=== PATIENT | male | born 1940 | race Caucasian/White ===

== ENCOUNTER 2020-07-11 07:00 | Day surgery (SDC) | payer MEDICARE, MEDICAID ==
--- NOTE | 2020-07-10 12:41 | Diagnostic Imaging Report ---
Indication: Shortness of breath Technique: 2 views of the chest Comparison: None Findings: Left hemidiaphragm is elevated. Lungs and pleural spaces are clear. Normal heart size Impression: No acute process
[~2020-07-11] VITALS: Ht 167.6 cm; Wt 81.6 kg
[2020-07-11] VITALS (12 sets, daily range): BP systolic 106–153; BP diastolic 58–89
[~2020-07-11 07:00] MED LIST: ceFAZolin sod 1 GM in NS 55 ML IVPB ONE
[2020-07-11] MEDS ORDERED: NEXIUM20 M1 ORAL (08:07)
[2020-07-11] MEDS ORDERED: BYSTOLIC2.5 MG ORAL (08:08)
[2020-07-11] MEDS ORDERED: breo INH (08:09)
[2020-07-11] MEDS ORDERED: BACTRIM DS TAB1 EAC1 ORAL (08:10)
[2020-07-11] MEDS ORDERED: LEVAQUIN500 MG ORAL (08:10)
[2020-07-11] MEDS ORDERED: Rocuronium Bromide 50mg/5ml Inj IV ONE (09:41)
[2020-07-11] MEDS ORDERED: Iothalamate Meglumine 60% 30ML INJ ONE (09:44)
--- NOTE | 2020-07-11 09:45 | Pre-Procedure Note/Attestation ---
Pre-Procedure Note/Attestation Complete Prior to Procedure Planned Procedure: not applicable Procedure Narrative: TURBT RPG Indications for Procedure Pre-Operative Diagnosis: bladder tumor Attestation I attest that I discussed the nature of the procedure; its benefits; risks and complications; and alternatives (and the risks and benefits of such alternatives ), prior to the procedure, with the patient (or the patient's legal electronics parts sales representative). I attest that, if there was a reasonable possibility of needing a blood transfusion, the patient (or the patient's legal electronics parts sales representative) was given the [facility] standardized written summary, pursuant to the Ananda Noe Blood Safety Act ([place] Health and Safety Code # 1645, as amended). I attest that I re-evaluated the patient just prior to the surgery and that there has been no change in the patient's H&P, except as documented below: Jamal Cruz MD Jul 11, 2020 09:45
[2020-07-11] MEDS ORDERED: Sterile Water Irrig 1000ml IRRIG ONE (09:50)
[2020-07-11] MEDS ORDERED: NS Irrig 2000ml IRRIG ONE ×2 (09:50→10:31)
[2020-07-11] MEDS ORDERED: NS Irrig 1000ml ONE (09:50)
[2020-07-11] MEDS ORDERED: LR 1000ml ONE (09:50)
[2020-07-11] MEDS ORDERED: fentaNYL 100 mcg/2 mL IV ONE (09:53)
[2020-07-11] MEDS ORDERED: Midazolam 2mg/2ml Inj ONE (09:54)
[2020-07-11] MEDS ORDERED: HYDROmorphone 1mg/ml Carpuject SUBQ PRN (10:00)
[2020-07-11] MEDS ORDERED: D5 1/2NS 1,000 ML IV SCH (10:00)
[2020-07-11] MEDS ORDERED: HYDROcodone/Acetamin 5/325 tab ORAL PRN (10:00)
[2020-07-11] MEDS ORDERED: Tylenol #3 tab (300mg/30mg) ORAL PRN (10:00)
--- NOTE | 2020-07-11 10:01 | Brief Operative Note ---
Immediate Post Operative Note Operative Note Pre-op Diagnosis: bladder tumor Procedure: TURBT RPG Post-op Diagnosis: Bladder tumor Post-op Diagnosis: same as pre-op Surgeon: Jamal Cruz Anesthesia: general Specimen: yes Complications: none Condition: stable Fluids: 500 Estimated Blood Loss: minimal Implant(s) used?: No Jamal Cruz MD Jul 11, 2020 10:01
[2020-07-11] MEDS ORDERED: Metoclopramide 10mg/2ml Inj ONE (10:48)
[2020-07-11] MEDS ORDERED: Lidocaine 1% MPF 10mg/ml 5ml ONE (10:48)
[2020-07-11] MEDS ORDERED: Glycopyrrolate 0.2mg/ml 1ml Vial ONE ×2 (10:53→10:59)
[2020-07-11] MEDS ORDERED: Neostigmine 1mg/ml 10ml Inj ONE (10:53)
--- NOTE | 2020-07-11 10:56 | Anethesia Preoperative Eval ---
Anesthesia Pre-op PMH/ROS General Date of Evaluation: Jul 11, 2020 Time of Evaluation: 09:50 Anesthesiologist: chato ASA Score: ASA 3 Mallampati Score Class I : Soft palate, uvula, fauces, pillars visible Class II: Soft palate, uvula, fauces visible Class III: Soft palate, base of uvula visible Class IV: Only hard plate visible Mallampati Classification: Class III Anesthesia History: none Family History: no anesthesia problems Allergies: Coded Allergies: No Known Allergies (Unverified , 07/10/20) Medications: see eMAR Patient NPO?: Yes NPO Date: Jul 11, 2020 NPO Time: 00:01 Past Medical History Cardiovascular: Reports: HTN Pulmonary: Denies: asthma, COPD, NAKITA, other Gastrointestinal/Genitourinary: Reports: GERD, other - bladder tumr Neurologic/Psychiatric: Denies: dementia, CVA, depression/anxiety, TIA, other Endocrine: Denies: DM, hypothyroidism, steroids, other HEENT: Denies: cataract (L), cataract (R), glaucoma, OMAHA (L), OMAHA (R), other Hematology/Immune: Denies: anemia, DVT, bleeding disorder, other Other: obesity PSxH Narrative: turp Anesthesia Pre-op Phys. Exam Physician Exam Last Vital Signs Date Time Temp Pulse Resp B/P (MAP) Pulse Ox O2 Delivery O2 Flow Rate FiO2 07/11/20 08:01 Room Air 07/11/20 07:39 97.4 71 20 153/89 98 Constitutional: NAD Neurologic: CN 2-12 intact Cardiovascular: RRR Respiratory: CTA Gastrointestinal: S/NT/ND Airway Exam Mallampati Classification 3 Mallampati Score: Class III MO: limited ROM: limited Teeth: missing Dentures: no upper, no lower Anesthesia Pre-op A/P Studies Pre-op Studies: EKG - SR Risk Assessment & Plan Plan: general Pre-Antibiotics Drug: ancef Given Within 1 Hr of Incision: Yes Time Given: 10:05 Kajal Jacques CRNA Jul 11, 2020 10:56
[2020-07-11] MEDS ORDERED: Hydromorphone 0.5mg/0.5ml inj IVP PRN (11:00)
[2020-07-11] MEDS ORDERED: fentaNYL 100 mcg/2 mL IV PRN (11:00)
--- NOTE | 2020-07-11 11:19 | Immediate Post-Op Evaluation ---
Immediate Post-Op Evalulation Immediate Post-Op Evalulation Procedure: turp Date of Evaluation: Jul 11, 2020 Time of Evaluation: 11:19 IV Fluids: 1000 Blood Pressure Systolic: 148 Blood Pressure Diastolic: 70 Pulse Rate: 67 Respiratory Rate: 14 O2 Sat by Pulse Oximetry: 99 Temperature (Fahrenheit): 98.4 Nausea: No Vomiting: No Complications none Patient Status: awake, reacts, patent Hydration Status: adequate Drug: ancef Given Within 1 Hr of Incision: Yes Time Given: 10:05 Kajal Jacques CRNA Jul 11, 2020 11:19
--- NOTE | 2020-07-11 12:10 | 48 Hour Post Anesthesia Eval ---
Post Anesthesia Evaluation Procedure: turp Date of Evaluation: Jul 11, 2020 Time of Evaluation: 12:10 Blood Pressure Systolic: 109 0: 60 Pulse Rate: 50 Respiratory Rate: 14 O2 Sat by Pulse Oximetry: 98 Airway: patent Nausea: No Vomiting: No Hydration Status: adequate Cardiopulmonary Status: STABLE Mental Status/LOC: patient returned to baseline Post-Anesthesia Complications: none Follow-up care needed: N/A Kajal Jacques CRNA Jul 11, 2020 12:10
--- NOTE | 2020-07-11 16:20 | Diagnostic Imaging Report ---
INDICATION: Pain, intraoperative TECHNIQUE: Intraoperative imaging Fluoroscopy time: 13.2 seconds Total dose: [id number] mGym2 Total number of images: 7 COMPARISON: None FINDINGS: Intraoperative images during retrograde ureteral injection demonstrate opacification of the bilateral ureters and renal collecting systems IMPRESSION: Intraoperative imaging, as described
[2020-07-12] MEDS ORDERED: NEXIUM40 MG ORAL (01:00)
[2020-07-12] MEDS ORDERED: BREO ELLIPTA 11 EACH IH (01:00)
[2020-07-12] MEDS ORDERED: ZOLPIDEM TARTRAT5 MG ORAL (01:00)
--- NOTE | 2020-07-13 00:15 | Operative Note - Dictated ---
DATE OF OPERATION: 07/11/2020 PREOPERATIVE DIAGNOSES: Bladder tumor, hematuria. POSTOPERATIVE DIAGNOSES: Bladder tumor, hematuria. OPERATION: Transurethral resection of bladder tumor with bilateral retrograde pyelogram. MULTI LINE CLAIMS ADJUSTER: Jamal Cruz MD ANESTHESIA: General. FINDINGS: Large tumor mass at the anterior portion of the bladder . INDICATION FOR SURGERY: Patient has had gross hematuria, came to the office, antibiotics. CT urogram showed infiltrating bladder mass. Cystoscopy confirmed the same. Treatment options explained to the patient in great length including all potential complications. He signed the consent. DESCRIPTION OF PROCEDURE: He was brought to the operating room, placed in the lithotomy position, prepped and draped in standard fashion. Under general anesthesia using transurethral resectoscope, the tumor was resected all the way to the muscularis and removed for pathological examination. Bilateral retrogrades were normal. A Ramos catheter was placed. Ramos was 2-way, irrigated clear urine. Patient was transferred to recovery room in a stable condition. Sponge count and instrument count was correct. Jamal Cruz M.D. DR: INA JOB#: [id number] CC:
== END 2020-07-11 13:15 | disposition home or self-care (01) ==
LOC: SUR 07:00
DX: C67.9 Malignant neoplasm of bladder, unspecified (principal); I10 Essential (primary) hypertension; K21.9 Gastro-esophageal reflux disease without esophagitis; E66.9 Obesity, unspecified; Z68.21 Body mass index [BMI] 21.0-21.9, adult
CPT/HCPCS: 52240; 71046; 74420; 76000; 93005; 94003; J0690; J1170; J2250; J2405; J2704; J2710; J2765; J3010; J7120; Q9961; U0002; 94150

== ENCOUNTER 2020-07-11 21:28 | Inpatient (IN) | payer MEDICARE, MEDICAID ==
[~2020-07-11] VITALS: Ht 162.6 cm; Wt 82.6 kg
[~2020-07-11 21:28] MED LIST changes: +BACTRIM DS TAB1 EAC1 ORAL; +BYSTOLIC2.5 MG ORAL; +LEVAQUIN500 MG ORAL; +NEXIUM20 M1 ORAL; +breo INH; -ceFAZolin sod 1 GM in NS 55 ML IVPB ONE
[2020-07-11 22:00] VITALS: BP 151/83
--- NOTE | 2020-07-11 22:05 | Emergency Room Report ---
History of Present Illness General Chief Complaint: Male Urogenital Problems Source: Patient, Friend Present Illness HPI This is an 80-year-old Ecuadorean-speaking male who presents with chief complaint of hematuria. He had a TURP procedure done today. He has a Ramos placed. He said when he got home he noticed urine was bloody. There were some strings of clots. Now is just maroon color urine. No fever chills but no trauma. No pain. Nothing made it better. Nothing made it worse. His urologist Dr. Sotelo told him to come to the hospital. 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: No Patient History Past Medical History: see triage record, old chart reviewed Past Surgical History: other Pertinent Family History: none Social History: Denies: smoking Immunizations: other Reviewed Nursing Documentation: PMH: Agreed; PSxH: Agreed Nursing Documentation-PMH Hx Cardiac Problems: Yes Hx Hypertension: Yes Hx Asthma: Yes Hx Cancer: No - BLADDER TUMOR Hx Gastrointestinal Problems: Yes Hx Neurological Problems: No Review of Systems Eye: Denies: eye pain, blurred vision ENT: Denies: ear pain, nose congestion, throat swelling Respiratory: Denies: cough, shortness of breath Cardiovascular: Denies: chest pain, palpitations Gastrointestinal: Denies: abdominal pain, diarrhea, nausea, vomiting Genitourinary: Reports: hematuria Musculoskeletal: Denies: back pain, joint pain Skin: Denies: rash Neurological: Denies: headache, numbness Endocrine: Denies: increased thirst, increased urine Hematologic/Lymphatic: Denies: easy bruising All Other Systems: negative except mentioned in HPI Physical Exam Vital Signs Date Time Temp Pulse Resp B/P (MAP) Pulse Ox O2 Delivery O2 Flow Rate FiO2 07/11/20 21:39 98.4 94 20 151/83 (105) 99 Room Air Vitals with high blood pressure Sp02 EP Interpretation: reviewed, normal General Appearance: well appearing, no apparent distress, alert Head: normocephalic, atraumatic Eyes: bilateral eye PERRL, bilateral eye EOMI ENT: hearing grossly normal, normal pharynx Neck: full range of motion, supple, no meningismus Respiratory: chest non-tender, lungs clear, normal breath sounds Cardiovascular #1: regular rate, rhythm, no murmur Gastrointestinal: normal bowel sounds, non tender, no mass, no organomegaly, no bruit, non-distended Musculoskeletal: back normal, normal range of motion, gait/station normal Psychiatric: mood/affect normal Medical Decision Making Diagnostic Impression: Primary Impression: Gross hematuria ER Course This patient presents with gross hematuria after TURP procedure. I spoke with Dr. Sotelo who wanted pt to be admitted for CBI with [address] [place]. He asked that Dr. Alvarez to admit. I spoke with Dr. Alvarez who will admit. Last Vital Signs Date Time Temp Pulse Resp B/P (MAP) Pulse Ox O2 Delivery O2 Flow Rate FiO2 07/11/20 21:39 98.4 94 20 151/83 (105) 99 Room Air Status: improved Disposition: SHORT-TERM HOSP Condition: Serious Ramin Elmore MD Jul 11, 2020 22:05
[2020-07-11 22:44] LABS: BASOPHILS % (AUTO) 0.8 % (0.0-2.0); EOSINOPHILS % (AUTO) 1.3 % (0.0-3.0); HEMATOCRIT 42.2 % (42.0-52.0); HEMOGLOBIN 14.3 G/DL (14.2-18.0); LYMPHOCYTES % (AUTO) 11.9 % (20.0-45.0); MEAN CORPUSCULAR VOLUME 89 FL (80-99); MONOCYTES % (AUTO) 7.1 % (1.0-10.0); NEUTROPHILS % (AUTO) 78.9 % (45.0-75.0); PLATELET COUNT 166 K/UL (150-450); RED BLOOD COUNT 4.76 M/UL (4.70-6.10); RED CELL DISTRIBUTION WIDTH 11.9 % (11.6-14.8); WHITE BLOOD COUNT 10.7 K/UL (4.8-10.8)
[2020-07-11 22:56] LABS: ANION GAP 10 mmol/L (5-15); BLOOD UREA NITROGEN 14 mg/dL (7-18); CALCIUM 9.2 MG/DL (8.5-10.1); CARBON DIOXIDE 24 MMOL/L (21-32); CHLORIDE 103 MMOL/L (98-107); POTASSIUM 3.9 MMOL/L (3.5-5.1); SODIUM 137 MMOL/L (136-145)
[2020-07-11 22:58] LABS: INR 1.1 (0.9-1.1)
[2020-07-11 23:01] LABS: ALANINE AMINOTRANSFERASE 18 U/L (12-78); ALBUMIN 3.8 G/DL (3.4-5.0); ALBUMIN/GLOBULIN RATIO 1.1 (1.0-2.7); ALKALINE PHOSPHATASE 69 U/L (46-116); ASPARTATE AMINO TRANSFERASE 20 U/L (15-37); BILIRUBIN,TOTAL 0.2 MG/DL (0.2-1.0)
[2020-07-11 23:03] LABS: APPEARANCE,URINE TURBID; COLOR,URINE RED
[2020-07-11 23:04] LABS: BILIRUBIN, URINE NEGATIVE (NEGATIVE); GLUCOSE, URINE (UA) NEGATIVE (NEGATIVE); KETONES,URINE NEGATIVE (NEGATIVE); LEUKOCYTE ESTERASE ,URINE TRACE (NEGATIVE); NITRITE,URINE NEGATIVE (NEGATIVE); PROTEIN,URINE 4+ (NEGATIVE); UROBILINOGEN,URINE NORMAL MG/DL (0.0-1.0)
[2020-07-11 23:50] VITALS: BP 182/79
[2020-07-12] VITALS: BP 137/88
[2020-07-12] MEDS ORDERED: Morphine Sulfate 4mg/ml Inj (IV USE ONLY) IVP PRN
[2020-07-12] MEDS ORDERED: ZOLPIDEM TARTRAT5 MG ORAL (01:00)
[2020-07-12] MEDS ORDERED: BREO ELLIPTA 11 EACH IH (01:00)
[2020-07-12] MEDS ORDERED: NEXIUM40 MG ORAL (01:00)
[2020-07-12] MEDS ORDERED: Zolpidem 5mg tab ORAL PRN (01:15)
[2020-07-12] MEDS ORDERED: Breo Ellipta 100/25mcg - 14 dose INH PRN (01:15)
[2020-07-12] MEDS ORDERED: Morphine Sulfate 2mg/ml Inj(IV/IM USE ONLY) IVP PRN ×3 (02:00→06:00)
[2020-07-12 04:00] VITALS: BP 111/65
[2020-07-12 06:58] LABS: BASOPHILS % (AUTO) 0.3 % (0.0-2.0); EOSINOPHILS % (AUTO) 1.1 % (0.0-3.0); HEMATOCRIT 39.1 % (42.0-52.0); HEMOGLOBIN 13.5 G/DL (14.2-18.0); LYMPHOCYTES % (AUTO) 12.2 % (20.0-45.0); MEAN CORPUSCULAR VOLUME 87 FL (80-99); MONOCYTES % (AUTO) 7.1 % (1.0-10.0); NEUTROPHILS % (AUTO) 79.3 % (45.0-75.0); PLATELET COUNT 144 K/UL (150-450); RED CELL DISTRIBUTION WIDTH 11.7 % (11.6-14.8); WHITE BLOOD COUNT 9.9 K/UL (4.8-10.8)
[2020-07-12 07:24] LABS: ANION GAP 10 mmol/L (5-15); BLOOD UREA NITROGEN 14 mg/dL (7-18); CALCIUM 8.8 MG/DL (8.5-10.1); CARBON DIOXIDE 24 MMOL/L (21-32); CHLORIDE 104 MMOL/L (98-107); PHOSPHORUS 3.5 MG/DL (2.5-4.9); POTASSIUM 3.6 MMOL/L (3.5-5.1); SODIUM 138 MMOL/L (136-145)
[2020-07-12 08:00] VITALS: BP 120/57
[2020-07-12] MEDS: Bystolic 2.5mg Tab ORAL SCH (08:54)
[2020-07-12 11:53] VITALS: BP 124/60
--- NOTE | 2020-07-12 13:59 | Consultation ---
History of Present Illness General Date patient seen: Jul 12, 2020 Reason for Hospitalization: Male Urogenital Problems Present Illness HPI This is an 80-year-old Singaporean-speaking male who presents with chief complaint of hematuria and pelvic discomfort. He had a TURP procedure done 07/11. He has a Ramos placed. He said when he got home he noticed urine was bloody and pelvic pain. There were some strings of clots. Now is just maroon color urine. No fever chills but no trauma. No pain. Nothing made it better. Nothing made it worse. His urologist Dr. Sotelo told him to come to the hospital. admitted for care and management. surgery called to evaluate and assist with care. patient seen, chart reviewed, america kellogg. states pain improving since admission Allergies: Coded Allergies: No Known Allergies (Unverified , 07/10/20) COVID-19 Screening Contact w/high risk pt: No Experienced COVID-19 symptoms?: No Medication History Scheduled Esomeprazole Magnesium (Nexium), 40 MG ORAL ACBREAKFAST, (Reported) Nebivolol Hcl* (Bystolic*), 5 MG ORAL DAILY, (Reported) Scheduled PRN Fluticasone/Vilanterol (Breo Ellipta 100-25 Mcg INH), 1 EACH IH EVERY 4 HOURS PRN for Shortness of Breath, (Reported) Zolpidem Tartrate* (Zolpidem Tartrate*), 5 MG ORAL BEDTIME PRN for Insomnia, ( Reported) Discontinued Medications Esomeprazole Magnesium (Nexium), 20 MG ORAL DAILY, (Reported) Discontinued Reason: Medication dose changed Levofloxacin* (Levaquin*), 500 MG ORAL DAILY, (Reported) Discontinued Reason: MD discontinued med Trimethoprim/Sulfamethoxazole 160/800* (Bactrim Ds Tablet*), 1 TAB ORAL TWICE A DAY, (Reported) Discontinued Reason: MD discontinued med [breo], 1 PUFF INH DAILY, (Reported) Discontinued Reason: Medication dose changed Patient History History Provided By: Patient, Medical Record, PMD Healthcare decision maker Resuscitation status Advanced Directive on File Past Medical/Surgical History Past Medical/Surgical History: (1) Pelvic pain (2) Gross hematuria Review of Systems Review of Symptoms General ROS: no weight loss or fever Psychological ROS: no depression or mood changes, no memory loss Ophthalmic ROS: no visual changes or eye irritation ENT ROS: no nasal congestion, hearing loss, dizziness Allergy and Immunology ROS: no allergic symptoms or urticaria Hematological and Lymphatic ROS: no swollen glands, unusual bleeding or bruising Endocrine ROS: no polyuria, polydipsia, weight changes, temperature intolerance Respiratory ROS: no cough, shortness of breath, or wheezing Cardiovascular ROS: no chest pain or dyspnea on exertion Gastrointestinal ROS: denies abdominal pain, bright red blood in stool. Musculoskeletal ROS: no myalgias or arthralgias Neurological ROS: no TIA or stroke symptoms Dermatological ROS: no new or changing skin lesions, rashes or pruritis Physical Exam Physical Exam General appearance: alert, cooperative, no distress, appears stated age Head: Normocephalic, without obvious abnormality, atraumatic Eyes: conjunctivae/corneas clear. PERRL, EOM's intact. Fundi benign Throat: Lips, mucosa, and tongue normal. Teeth and gums normal Neck: supple, symmetrical, trachea midline, no adenopathy, thyroid: not enlarged, symmetric, no tenderness/mass/nodules, no carotid bruit and no JVD Lungs: clear to auscultation bilaterally Heart: regular rate and rhythm, S1, S2 normal, no murmur, click, rub or gallop Abdomen: soft, non-tender. Bowel sounds normal. No masses, no organomegaly Extremities: extremities normal, atraumatic, no cyanosis or edema Pulses: 2+ and symmetric Skin: Skin color, texture, turgor normal. No rashes or lesions Neurologic: Grossly normal Last 24 Hour Vital Signs Date Time Temp Pulse Resp B/P (MAP) Pulse Ox O2 Delivery O2 Flow Rate FiO2 07/12/20 11:53 99.1 72 18 124/60 (81) 94 07/12/20 09:00 Room Air 07/12/20 08:00 98.3 80 20 120/57 (78) 93 07/12/20 04:00 98.1 71 111/65 (80) 07/12/20 01:11 Room Air 07/12/20 00:05 98.2 90 20 147/60 100 Room Air 07/12/20 00:00 98.4 99 20 137/88 99 Room Air 07/11/20 23:53 182/79 07/11/20 23:50 98.4 95 20 182/79 98 Room Air 07/11/20 22:00 98.4 94 20 151/83 99 Room Air 07/11/20 21:39 98.4 94 20 151/83 (105) 99 Room Air Intake and Output 07/11/20 07/12/20 19:00 07:00 Intake Total 200 ml Output Total 3150 ml Balance -2950 ml Intake Oral 200 ml Output Urine Total 3150 ml Laboratory Tests Test 07/11/20 22:00 07/11/20 22:18 07/12/20 05:35 White Blood Count 10.7 K/UL (4.8-10.8) 9.9 K/UL (4.8-10.8) Red Blood Count 4.76 M/UL (4.70-6.10) 4.50 M/UL (4.70-6.10) L Hemoglobin 14.3 G/DL (14.2-18.0) 13.5 G/DL (14.2-18.0) L Hematocrit 42.2 % (42.0-52.0) 39.1 % (42.0-52.0) L Mean Corpuscular Volume 89 FL (80-99) 87 FL (80-99) Mean Corpuscular Hemoglobin 30.0 PG (27.0-31.0) 29.9 PG (27.0-31.0) Mean Corpuscular Hemoglobin Concent 33.9 G/DL (32.0-36.0) 34.4 G/DL (32.0-36.0) Red Cell Distribution Width 11.9 % (11.6-14.8) 11.7 % (11.6-14.8) Platelet Count 166 K/UL (150-450) 144 K/UL (150-450) L Mean Platelet Volume 6.3 FL (6.5-10.1) L 6.4 FL (6.5-10.1) L Neutrophils (%) (Auto) 78.9 % (45.0-75.0) H 79.3 % (45.0-75.0) H Lymphocytes (%) (Auto) 11.9 % (20.0-45.0) L 12.2 % (20.0-45.0) L Monocytes (%) (Auto) 7.1 % (1.0-10.0) 7.1 % (1.0-10.0) Eosinophils (%) (Auto) 1.3 % (0.0-3.0) 1.1 % (0.0-3.0) Basophils (%) (Auto) 0.8 % (0.0-2.0) 0.3 % (0.0-2.0) Prothrombin Time 11.8 SEC (9.30-11.50) H Prothromb Time International Ratio 1.1 (0.9-1.1) Activated Partial Thromboplast Time 31 SEC (23-33) Sodium Level 137 MMOL/L (136-145) 138 MMOL/L (136-145) Potassium Level 3.9 MMOL/L (3.5-5.1) 3.6 MMOL/L (3.5-5.1) Chloride Level 103 MMOL/L (98-107) 104 MMOL/L (98-107) Carbon Dioxide Level 24 MMOL/L (21-32) 24 MMOL/L (21-32) Anion Gap 10 mmol/L (5-15) 10 mmol/L (5-15) Blood Urea Nitrogen 14 mg/dL (7-18) 14 mg/dL (7-18) Creatinine 1.0 MG/DL (0.55-1.30) 1.0 MG/DL (0.55-1.30) Estimat Glomerular Filtration Rate > 60 mL/min (>60) > 60 mL/min (>60) Glucose Level 117 MG/DL (74-106) H 101 MG/DL (74-106) Calcium Level 9.2 MG/DL (8.5-10.1) 8.8 MG/DL (8.5-10.1) Total Bilirubin 0.2 MG/DL (0.2-1.0) Aspartate Amino Transf (AST/SGOT) 20 U/L (15-37) Alanine Aminotransferase (ALT/SGPT) 18 U/L (12-78) Alkaline Phosphatase 69 U/L (46-116) Total Protein 7.2 G/DL (6.4-8.2) Albumin 3.8 G/DL (3.4-5.0) Globulin 3.4 g/dL Albumin/Globulin Ratio 1.1 (1.0-2.7) Urine Color Red Urine Appearance Turbid Urine pH 5.0 (4.5-8.0) Urine Specific [place] 1.005 (1.005-1.035) Urine Protein 4+ (NEGATIVE) H Urine Glucose (UA) Negative (NEGATIVE) Urine Ketones Negative (NEGATIVE) Urine Blood 5+ (NEGATIVE) H Urine Nitrite Negative (NEGATIVE) Urine Bilirubin Negative (NEGATIVE) Urine Urobilinogen Normal MG/DL (0.0-1.0) Urine Leukocyte Esterase Trace (NEGATIVE) H Urine RBC Tntc /HPF (0 - 0) H Urine WBC 2-4 /HPF (0 - 0) Urine Squamous Epithelial Cells None /LPF (NONE/OCC) Urine Bacteria Occasional /HPF (NONE) Phosphorus Level 3.5 MG/DL (2.5-4.9) Magnesium Level 1.7 MG/DL (1.8-2.4) L Height (Feet): 5 Height (Inches): 4.00 Weight (Pounds): 182 Medications Current Medications Medications (Trade) Dose Ordered Sig/Gunnar Route PRN Reason Start Time Stop Time Status Last Admin Dose Admin Acetaminophen (Tylenol) 650 mg Q6H PRN ORAL Mild Pain (Pain Scale 1-3) 07/12/20 00:45 08/11/20 00:44 Acetaminophen (Tylenol) 650 mg Q6H PRN ORAL Temp >100.5 07/12/20 00:45 08/11/20 00:44 Fluticasone/ Vilanterol (Breo Ellipta 100/25) 1 puff Q4H PRN INH Shortness of Breath 07/12/20 01:15 10/10/20 01:14 Morphine Sulfate (Morphine Sulfate) 2 mg Q4H PRN IVP Moderate Pain (Pain Scale 4-6) 07/12/20 02:38 07/19/20 02:37 Nebivolol (Bystolic) 5 mg DAILY ORAL 07/12/20 09:00 08/11/20 08:59 07/12/20 08:54 Ondansetron HCl (Zofran) 4 mg Q6H PRN IVP Nausea & Vomiting 07/12/20 02:00 08/11/20 01:59 Pantoprazole (Protonix) 40 mg BEFORE BREAKFAST ORAL 07/13/20 06:30 08/12/20 06:29 Zolpidem Tartrate (Ambien) 5 mg BEDTIME PRN ORAL Insomnia 07/12/20 01:15 07/19/20 01:14 07/12/20 02:26 Assessment/Plan Problem List: (1) Pelvic pain Assessment & Plan: pelvic pain from bladder full clots prior now washed out cbi improving labs noted exam stable cont cbi cont flushing will monitor no acute surgical intervention planned thank you will follow with recs ICD Codes: R10.2 - Pelvic and perineal pain SNOMED: [id number] (2) Gross hematuria Assessment & Plan: CBI initiated flushed and no clots currently clearing up ICD Codes: R31.0 - Gross hematuria SNOMED: [id number] Alex Matute Jul 12, 2020 13:59
[2020-07-12 16:00] VITALS: BP 134/73
--- NOTE | 2020-07-12 16:45 | History and Physical Report ---
DATE OF ADMISSION: 07/11/2020 This is an 80-year-old male who has undergone TURP on 07/11/2020. He was discharged. He has a Ramos in place. The patient returned overnight because of hematuria, and he had also abdominal pain. He was admitted to the hospital and bladder irrigation was started. He has been seen by General Surgery. PAST MEDICAL HISTORY: Notable for GERD and hypertension. HOME MEDICATIONS: Nexium and Bystolic. He also takes Breo and Ambien. REVIEW OF SYSTEMS: Denies any headaches, hematemesis, melena, hematochezia, or weight loss. Admits to having hematuria. PHYSICAL EXAMINATION: GENERAL: Reveals an 80-year-old male. HEENT: Unremarkable. CHEST: Clear breath sounds bilaterally. ABDOMEN: Soft. EXTREMITIES: There is no edema. NEUROLOGIC: Nonfocal. VITAL SIGNS: Blood pressure is 120/60, heart rate 84, respirations 18. LABORATORY DATA: Blood test at this time are notable for hemoglobin of 14, now down to 13. Glucose is 117. Coags are negative. Urinalysis shows multiple rbc's. IMAGING: None. Recent retrograde pyelogram was done, which was intraoperative. A chest x-ray was also done on 07/10/2020, which is negative. IMPRESSION: 1. Hematuria. 2. Status post TURP. DISCUSSION: Admit to the hospital. Bladder irrigation, seen by Surgery. Urology followup pending. We will follow carefully. Check labs in a.m. Continue medications. Kenn Alvarez M.D. DR: DONNIE JOB#: [id number] CC:
[2020-07-12] MEDS: Docusate 100mg cap ORAL SCH (17:44)
[2020-07-12] MEDS ORDERED: Fleet's Enema 133ml RECTAL PRN (18:30)
[2020-07-12] MEDS ORDERED: Milk of Magnesia 30ml Ud ORAL PRN (18:30)
[2020-07-12] MEDS: Levofloxacin 500mg tab ORAL SCH (18:59)
[2020-07-12 20:00] VITALS: BP 129/71
[2020-07-12] MEDS ORDERED: NS Irrig 4000ml IRRIG ONE (20:21)
[2020-07-12] MEDS ORDERED: NS Irrig 2000ml IRRIG ONE (20:21)
[2020-07-13] VITALS: BP 132/70
[2020-07-13 04:00] VITALS: BP 120/73
[2020-07-13 06:36] LABS: BASOPHILS % (AUTO) 0.4 % (0.0-2.0); EOSINOPHILS % (AUTO) 3.5 % (0.0-3.0); HEMATOCRIT 40.6 % (42.0-52.0); HEMOGLOBIN 13.9 G/DL (14.2-18.0); LYMPHOCYTES % (AUTO) 11.2 % (20.0-45.0); MEAN CORPUSCULAR VOLUME 87 FL (80-99); MONOCYTES % (AUTO) 6.1 % (1.0-10.0); NEUTROPHILS % (AUTO) 78.8 % (45.0-75.0); PLATELET COUNT 153 K/UL (150-450); RED BLOOD COUNT 4.67 M/UL (4.70-6.10); RED CELL DISTRIBUTION WIDTH 11.8 % (11.6-14.8); WHITE BLOOD COUNT 9.5 K/UL (4.8-10.8)
[2020-07-13 07:17] LABS: ANION GAP 9 mmol/L (5-15); BLOOD UREA NITROGEN 12 mg/dL (7-18); CALCIUM 9.2 MG/DL (8.5-10.1); CARBON DIOXIDE 26 MMOL/L (21-32); CHLORIDE 107 MMOL/L (98-107); PHOSPHORUS 2.7 MG/DL (2.5-4.9); POTASSIUM 3.9 MMOL/L (3.5-5.1); SODIUM 142 MMOL/L (136-145)
[2020-07-13 08:00] VITALS: BP 114/52
[2020-07-13] MEDS: Docusate 100mg cap ORAL SCH (08:19)
[2020-07-13] MEDS: Levofloxacin 500mg tab ORAL SCH (08:19)
[2020-07-13] MEDS: Breo Ellipta 100/25mcg - 14 dose INH SCH ×2 (08:19→08:23)
[2020-07-13] MEDS: Bystolic 2.5mg Tab ORAL SCH (08:19)
--- NOTE | 2020-07-13 08:25 | Pulmonology Progress Note ---
Subjective Interval Events: None new Constitutional: Reports: no symptoms HEENT: Repors: no symptoms Respiratory: Reports: no symptoms Cardiovascular: Reports: no symptoms Gastrointestinal/Abdominal: Reports: no symptoms Allergies: Coded Allergies: No Known Allergies (Unverified , 07/10/20) Objective Last 24 Hour Vital Signs Date Time Temp Pulse Resp B/P (MAP) Pulse Ox O2 Delivery O2 Flow Rate FiO2 07/13/20 08:00 98.1 82 20 114/52 (72) 93 07/13/20 04:00 98.1 70 20 120/73 (89) 98 07/13/20 00:00 97.9 73 19 132/70 (90) 97 07/12/20 21:00 Room Air 07/12/20 20:00 98.2 75 19 129/71 (90) 96 07/12/20 16:00 98.5 73 20 134/73 (93) 95 07/12/20 11:53 99.1 72 18 124/60 (81) 94 07/12/20 09:00 Room Air Intake and Output 07/12/20 07/13/20 19:00 07:00 Intake Total 300 ml Output Total 1750 ml 1100 ml Balance -1750 ml -800 ml Intake Oral 300 ml Output Urine Total 1750 ml 1100 ml General Appearance: no acute distress HEENT: normocephalic Respiratory: chest wall non-tender, lungs clear Cardiovascular: normal peripheral pulses, normal rate Abdomen: normal bowel sounds Laboratory Tests 07/13/20 04:50: White Blood Count 9.5, Red Blood Count 4.67L, Hemoglobin 13.9L, Hematocrit 40.6L , Mean Corpuscular Volume 87, Mean Corpuscular Hemoglobin 29.9, Mean Corpuscular Hemoglobin Concent 34.3, Red Cell Distribution Width 11.8, Platelet Count 153, Mean Platelet Volume 6.3L, Neutrophils (%) (Auto) 78.8H, Lymphocytes (%) (Auto) 11.2L, Monocytes (%) (Auto) 6.1, Eosinophils (%) (Auto) 3.5H, Basophils (%) (Auto) 0.4, Sodium Level 142, Potassium Level 3.9, Chloride Level 107, Carbon Dioxide Level 26, Anion Gap 9, Blood Urea Nitrogen 12, Creatinine 1.0, Estimat Glomerular Filtration Rate > 60, Glucose Level 89, Calcium Level 9.2, Phosphorus Level 2.7, Magnesium Level 2.0 Current Medications Medications (Trade) Dose Ordered Sig/Gunnar Route PRN Reason Start Time Stop Time Status Last Admin Dose Admin Acetaminophen (Tylenol) 650 mg Q6H PRN ORAL Mild Pain (Pain Scale 1-3) 07/12/20 00:45 08/11/20 00:44 Acetaminophen (Tylenol) 650 mg Q6H PRN ORAL Temp >100.5 07/12/20 00:45 08/11/20 00:44 Bisacodyl (Dulcolax) 10 mg DAILYPRN PRN RECTAL Constipation 07/12/20 18:30 10/10/20 18:29 07/12/20 22:37 Docusate Sodium (Colace) 100 mg TWICE A DAY ORAL 07/12/20 18:00 08/11/20 17:59 07/13/20 08:19 Fluticasone/ Vilanterol (Breo Ellipta 100/25) 1 puff DAILY INH 07/13/20 09:00 10/10/20 01:14 07/13/20 08:19 Levofloxacin (Levaquin) 500 mg DAILY ORAL 07/12/20 18:30 07/19/20 18:29 07/13/20 08:19 Magnesium Hydroxide (Mom) 30 ml Q6H PRN ORAL Constipation 07/12/20 18:30 08/11/20 18:29 07/12/20 18:59 Morphine Sulfate (Morphine Sulfate) 2 mg Q4H PRN IVP Moderate Pain (Pain Scale 4-6) 07/12/20 02:38 07/19/20 02:37 Nebivolol (Bystolic) 5 mg DAILY ORAL 07/12/20 09:00 08/11/20 08:59 07/13/20 08:19 Ondansetron HCl (Zofran) 4 mg Q6H PRN IVP Nausea & Vomiting 07/12/20 02:00 08/11/20 01:59 Pantoprazole (Protonix) 40 mg BEFORE BREAKFAST ORAL 07/13/20 06:30 08/12/20 06:29 07/13/20 05:40 Sodium Phosphate (Fleet's Sodium Phosl Enema) 133 ml DAILYPRN PRN RECTAL CONSTIPATION 07/12/20 18:30 08/11/20 18:29 Zolpidem Tartrate (Ambien) 5 mg BEDTIME PRN ORAL Insomnia 07/12/20 01:15 07/19/20 01:14 07/12/20 02:26 Assessment/Plan Assessment/Plan IMPRESSION: 1. Hematuria. 2. Status post TURP. DISCUSSION: Continue CBI per urology I will follow carefully. Await AM labs Continue medications. Regla Juarez Omar Syed MD Jul 13, 2020 08:25
[2020-07-13] MEDS ORDERED: Tubing IV Secondary IV ONE (11:14)
[2020-07-13] MEDS ORDERED: NS Irrig 1000ml ONE (11:14)
--- NOTE | 2020-07-13 11:59 | Surgery Progress Note ---
Surgery Progress Note Subjective Symptoms: improved, pain absent, tolerating diet, voiding well, passing flatus , BM Objective Last 24 Hour Vital Signs Date Time Temp Pulse Resp B/P (MAP) Pulse Ox O2 Delivery O2 Flow Rate FiO2 07/13/20 09:00 Room Air 07/13/20 08:00 98.1 82 20 114/52 (72) 93 07/13/20 04:00 98.1 70 20 120/73 (89) 98 07/13/20 00:00 97.9 73 19 132/70 (90) 97 07/12/20 21:00 Room Air 07/12/20 20:00 98.2 75 19 129/71 (90) 96 07/12/20 16:00 98.5 73 20 134/73 (93) 95 I&O Intake and Output 07/12/20 07/13/20 19:00 07:00 Intake Total 300 ml Output Total 1750 ml 1100 ml Balance -1750 ml -800 ml Intake Oral 300 ml Output Urine Total 1750 ml 1100 ml Cardiovascular: RSR Respiratory: clear Abdomen: soft, non-tender, present bowel sounds Extremities: no edema, no tenderness, no cyanosis Laboratory Tests Test 07/13/20 04:50 White Blood Count 9.5 K/UL (4.8-10.8) Red Blood Count 4.67 M/UL (4.70-6.10) L Hemoglobin 13.9 G/DL (14.2-18.0) L Hematocrit 40.6 % (42.0-52.0) L Mean Corpuscular Volume 87 FL (80-99) Mean Corpuscular Hemoglobin 29.9 PG (27.0-31.0) Mean Corpuscular Hemoglobin Concent 34.3 G/DL (32.0-36.0) Red Cell Distribution Width 11.8 % (11.6-14.8) Platelet Count 153 K/UL (150-450) Mean Platelet Volume 6.3 FL (6.5-10.1) L Neutrophils (%) (Auto) 78.8 % (45.0-75.0) H Lymphocytes (%) (Auto) 11.2 % (20.0-45.0) L Monocytes (%) (Auto) 6.1 % (1.0-10.0) Eosinophils (%) (Auto) 3.5 % (0.0-3.0) H Basophils (%) (Auto) 0.4 % (0.0-2.0) Sodium Level 142 MMOL/L (136-145) Potassium Level 3.9 MMOL/L (3.5-5.1) Chloride Level 107 MMOL/L (98-107) Carbon Dioxide Level 26 MMOL/L (21-32) Anion Gap 9 mmol/L (5-15) Blood Urea Nitrogen 12 mg/dL (7-18) Creatinine 1.0 MG/DL (0.55-1.30) Estimat Glomerular Filtration Rate > 60 mL/min (>60) Glucose Level 89 MG/DL (74-106) Calcium Level 9.2 MG/DL (8.5-10.1) Phosphorus Level 2.7 MG/DL (2.5-4.9) Magnesium Level 2.0 MG/DL (1.8-2.4) Plan Problems: (1) Pelvic pain Assessment & Plan: pelvic pain from bladder full clots prior now washed out cbi improving labs noted exam stable cont cbi cont flushing will monitor no acute surgical intervention planned thank you will follow with recs (2) Gross hematuria Assessment & Plan: CBI initiated flushed and no clots currently clearing up Additional Comments urine clear cbi d/c d/c home f/u outpatient Alex Matute Jul 13, 2020 11:59
--- NOTE | 2020-07-15 13:43 | Discharge Summary ---
Discharge Summary Discharge Summary _ DATE OF ADMISSION: 07/11/2020 DATE OF DISCHARGE: 07/13/2020 DISCHARGED BY: Dr. Radha Alvarez CONSULTANTS: Dr. Alex Matute BRIEF HOSPITAL COURSE: Patient is an 80-year-old male who has undergone TURP on 07/11/2020. He was discharged and had a Ramos catheter in place. The patient returned overnight because of hematuria and abdominal pain. He has medical history of GERD and hypertension. Upon evaluation at ED, vital signs were stable. Hemoglobin and hematocrit were stable. Urinalysis revealed too numerous to count urine RBC, 5+ urine blood. He was sent by urologist to be started on bladder irrigation. He was then admitted for gross hematuria. He was started on bladder irrigation. He was given Levaquin for prophylaxis. He was placed on Protonix for GI protection. He was continued on home medications. He was followed by surgeon. Urine eventually cleared up. Blood clots were flushed out. Hemoglobin was stable. Urine was clear. Patient was cleared for discharge home. FINAL DIAGNOSES: Hematuria Status post TURP DISPOSITION: Patient was discharged home. DISCHARGE MEDICATIONS: Refer to Discharge Medication List. I have been assigned to complete a discharge summary on this account, I was not involved with the patient's management.--DEVAUGHN Roca Jacqueline Robles NP Jul 15, 2020 13:43
== END 2020-07-13 11:15 | disposition home or self-care (01) | DRG 921 ==
LOC: EMR 22:05 → 3E 22:44 → EDBEDREQ 23:02 → 3E 07-12 00:58
DX: N99.820 Postprocedural hemorrhage of a genitourinary system organ or structure following a genitourinary system procedure (principal); R31.0 Gross hematuria; R10.2 Pelvic and perineal pain; Z90.79 Acquired absence of other genital organ(s); K21.9 Gastro-esophageal reflux disease without esophagitis; I10 Essential (primary) hypertension; Y83.8 Other surgical procedures as the cause of abnormal reaction of the patient, or of later complication, without mention of misadventure at the time of the procedure
CPT/HCPCS: 36415; 80048; 80053; 81001; 83735; 84100; 85025; 85610; 85730; 99285; J7030